=== PATIENT | male | born 1975 | race Caucasian/White ===

== ENCOUNTER 2017-10-16 09:20 | Emergency (ER) | payer BC, OTHER ==
[2017-03-07 12:57] VITALS: Ht 185.4 cm; Wt 81.6 kg
[~2017-10-16] VITALS: Ht 185.4 cm; Wt 81.6 kg
[~2017-10-16 09:20] MED LIST: CHOL400T29 PO; LEVO-85 PO; LEVO500T83 PO; MAGN400T52 PO; ONDA4TAB9 PO; PRE1 PO; PRE5 PO; SIRO1TAB PO; TACR1CAP15 PO; [UNRECOGNIZED DRUG - OTHER]
--- NOTE | 2017-10-16 09:39 | ER Report ---
History and Physical Time Seen By MD: 09:37 Hx. of Stated Complaint: PATIENT REPORTS FEVER, CHILLS AND NAUSEA FOR 2 DAYS HPI/ROS CHIEF COMPLAINT: Fever and nausea for 2 days HISTORY OF PRESENT ILLNESS: Patient is a 41-year-old male who was sent from [facility] for evaluation of fever and flulike symptoms patient has a history of renal transplant in 2004 no prior history of problems with rejection currently on immunosuppressive medication. For the past 2 days patient had generalized body aches headache fever between 101 an 102. He reports nausea without vomiting or abdominal pain or diarrhea. He does report cough. The patient did have influenza testing at the clinic which was reported to be negative. Temperature was recorded at 102.5 with a heart rate of 1:30 respiratory rate between 20 and 30 for breast per minute and a sat of 92% on room air. He was brought to [facility] by his mother. Patient reports normal urinary output denies any dysuria. REVIEW OF SYSTEMS: Constitutional: Fevers and chills Eyes: No discharge. ENT: Mild scratchy sore throat Cardiovascular: No chest pain, no palpitations. Respiratory: Nonproductive cough Gastrointestinal: No abdominal pain, nausea but no vomiting Genitourinary: No hematuria. Musculoskeletal: No back pain. Generalized body aches Skin: No rashes. Neurological: Generalized headache Allergies: Coded Allergies: Penicillins (Verified Allergy, Unknown, 04/23/15) codeine (Verified Allergy, Unknown, 04/23/15) morphine (Verified Allergy, Unknown, 04/23/15) Home Meds Active Scripts Oseltamivir Phosphate (TAMIFLU) 75 Mg Cap, 75 MG PO BID for 5 Days, #10 CAP 0 Refills Prov:PIA SOOD MD 10/16/17 Levofloxacin 500 Mg Tab (LEVAQUIN 500 MG TAB) 500 Mg Tablet, 500 MG PO QDAY, #8 TAB Prov:CARMEN FENTON MD 03/07/17 Ondansetron (ONDANSETRON ODT) 4 Mg Tab.rapdis, 4 MG PO Q8H for Nausea, #20 TAB Prov:DIANE GIFFORD PA-C 03/06/17 Levofloxacin 500 Mg Tab (LEVOFLOXACIN 500 MG TAB) 500 Mg Tablet, 500 MG PO QDAY for 7 Days, #7 TAB Prov:DIANE GIFFORD PA-C 03/06/17 Reported Medications Prednisone 5 Mg Tab (PREDNISONE 5 MG TAB) 5 Mg Tablet, 5 MG PO QDAY, TAB 03/07/17 Sirolimus (Sirolimus) 1 Mg Tablet, PO DAILY 03/06/17 Cholecalciferol (Vitamin D3) (VITAMIN D3) 400 Unit Tablet, 800 UNIT PO QAM 03/06/17 Magnesium Oxide (MAGOX 400) 400 Mg Tablet, 400 MG PO QAM 03/06/17 Tacrolimus (PROGRAF) 1 Mg Capsule, 2 MG PO BID, CAPSULE 11/12/13 Past Medical/Surgical History Past medical history significant for renal transplant currently on immunosuppressants (tacrolimus, prednisone, sirolimus). History of depression history of admission in February 2017 for pneumonia. Creatinine in February 2017 was 0.8 Hx Smoking: No Smoking Status: Never Smoker Hx Substance Use Disorder: No Hx Alcohol Use: No Constitutional Vital Sign - Last 24 Hours 10/16/17 10/16/17 10/16/17 10/16/17 09:27 09:29 09:50 10:00 Temp 101.0 Pulse 103 104 Resp 24 B/P (MAP) 146/97 146/97 (113) 134/92 (106) Pulse Ox 93 93 O2 Delivery Room Air 10/16/17 10/16/17 10/16/17 10/16/17 10:03 10:20 10:30 10:50 Pulse 101 93 B/P (MAP) 126/87 (100) Pulse Ox 96 96 O2 Flow Rate 3.0 10/16/17 10/16/17 10/16/17 10/16/17 10:53 10:55 11:00 11:10 Temp 98.2 Pulse 96 90 B/P (MAP) 125/86 (99) Pulse Ox 96 96 10/16/17 10/16/17 11:25 11:30 Pulse 96 B/P (MAP) 112/81 (91) Intake and Output 10/16/17 10/16/17 10/17/17 15:00 23:00 07:00 Intake Total 1000 ml Balance 1000 ml Physical Exam General/Constitutional: Patient is awake, alert, nontoxic and in no acute respiratory distress. Head: Normocephalic and atraumatic. Eyes: Conjunctival clear, Pupils are equal and reactive to light. Extraocular muscles are intact and symmetrical. Sclera are clear and anicteric. Ears:External canals are clear. Tympanic membranes are clear with normal landmarks and light reflex. Nares: No rhinorrhea or bleeding. Turbinates are pink and moist. Oropharyngeal: Mucous membranes are moist. There is no pharyngeal erythema or exudate. There are no palatal petechiae. Uvula is midline and symmetrical. Neck: Supple, no adenopathy. Cardiovascular: Heart is regular rate and rhythm without audible murmurs, rubs or gallops. Pulmonary: Lungs are clear to auscultation bilaterally. There are no wheezes, rales, or rhonchi. Chest rise is symmetrical Abdomen: Soft, nontender, no guarding or peritoneal signs. Extremities: No gross deformities, No peripheral cyanosis. Able to move all 4 extremities. Neuro: Alert and oriented X3, Cranial nerves 2 thru 12 are intact and symmetrical. Patient has normal gait. Skin: No rashes, skin is warm dry and well perfused. Medical Decision Making Data Points Result Diagram: 10/16/17 0940 10/16/17 0940 Laboratory Hematology Test 10/16/17 09:40 10/16/17 09:44 Red Blood Count 5.57 M/uL (4.00-5.60) Mean Corpuscular Volume 84.8 fL (80.0-96.0) Mean Corpuscular Hemoglobin 30.0 pg (26.0-33.0) Mean Corpuscular Hemoglobin Concent 35.4 g/dL (32.0-36.0) Red Cell Distribution Width 12.9 % (11.5-14.5) Mean Platelet Volume 8.2 fL (7.2-11.1) Neutrophils (%) (Auto) 79.2 % (39.4-72.5) Lymphocytes (%) (Auto) 7.3 % (17.6-49.6) Monocytes (%) (Auto) 13.0 % (4.1-12.4) Eosinophils (%) (Auto) 0.0 % (0.4-6.7) Basophils (%) (Auto) 0.5 % (0.3-1.4) Nucleated RBC Relative Count (auto) 0.5 /100WBC Neutrophils # (Auto) 9.0 K/uL (2.0-7.4) Lymphocytes # (Auto) 0.8 K/uL (1.3-3.6) Monocytes # (Auto) 1.5 K/uL (0.3-1.0) Eosinophils # (Auto) 0.0 K/uL (0.0-0.5) Basophils # (Auto) 0.1 K/uL (0.0-0.1) Nucleated RBC Absolute Count (auto) 0.06 K/uL Sodium Level 127 mmol/L (137-145) Potassium Level 4.1 mmol/L (3.5-5.0) Chloride Level 96 mmol/L (98-107) Carbon Dioxide Level 19 mmol/L (22-30) Blood Urea Nitrogen 16 mg/dl (9-21) Creatinine 0.90 mg/dl (0.66-1.25) Glomerular Filtration Rate Calc > 60.0 Random Glucose 139 mg/dl (75-110) Lactate 1.2 mmol/L (0.7-2.1) Calcium Level 9.8 mg/dl (8.4-10.2) Total Bilirubin 0.9 mg/dl (0.2-1.3) Aspartate Amino Transf (AST/SGOT) 47 U/L (0-35) Alanine Aminotransferase (ALT/SGPT) 97 U/L (0-56) Alkaline Phosphatase 286 U/L (0-126) Total Protein 6.7 gm/dl (6.3-8.2) Albumin 3.6 g/dl (3.5-5.0) Influenza Virus Type A (PCR) Negative (NEGATIVE) Influenza Virus Type B (PCR) Positive (NEGATIVE) Chemistry Test 10/16/17 09:40 10/16/17 09:44 White Blood Count 11.3 k/uL (4.5-11.0) Red Blood Count 5.57 M/uL (4.00-5.60) Hemoglobin 16.7 g/dL (14.0-18.0) Hematocrit 47.2 % (42.0-52.0) Mean Corpuscular Volume 84.8 fL (80.0-96.0) Mean Corpuscular Hemoglobin 30.0 pg (26.0-33.0) Mean Corpuscular Hemoglobin Concent 35.4 g/dL (32.0-36.0) Red Cell Distribution Width 12.9 % (11.5-14.5) Platelet Count 187 K/uL (150-450) Mean Platelet Volume 8.2 fL (7.2-11.1) Neutrophils (%) (Auto) 79.2 % (39.4-72.5) Lymphocytes (%) (Auto) 7.3 % (17.6-49.6) Monocytes (%) (Auto) 13.0 % (4.1-12.4) Eosinophils (%) (Auto) 0.0 % (0.4-6.7) Basophils (%) (Auto) 0.5 % (0.3-1.4) Nucleated RBC Relative Count (auto) 0.5 /100WBC Neutrophils # (Auto) 9.0 K/uL (2.0-7.4) Lymphocytes # (Auto) 0.8 K/uL (1.3-3.6) Monocytes # (Auto) 1.5 K/uL (0.3-1.0) Eosinophils # (Auto) 0.0 K/uL (0.0-0.5) Basophils # (Auto) 0.1 K/uL (0.0-0.1) Nucleated RBC Absolute Count (auto) 0.06 K/uL Glomerular Filtration Rate Calc > 60.0 Lactate 1.2 mmol/L (0.7-2.1) Calcium Level 9.8 mg/dl (8.4-10.2) Total Bilirubin 0.9 mg/dl (0.2-1.3) Aspartate Amino Transf (AST/SGOT) 47 U/L (0-35) Alanine Aminotransferase (ALT/SGPT) 97 U/L (0-56) Alkaline Phosphatase 286 U/L (0-126) Total Protein 6.7 gm/dl (6.3-8.2) Albumin 3.6 g/dl (3.5-5.0) Influenza Virus Type A (PCR) Negative (NEGATIVE) Influenza Virus Type B (PCR) Positive (NEGATIVE) Microbiology Microbiology Date/Time Source Procedure Growth Status 10/16/17 09:40 Blood Peripheral Draw Blood Culture - Preliminary NO GROWTH SO FAR, SET LATE. REINCUBATED Resulted ED Course/Re-evaluation Clinical Indication for ER IV: Hydration, IV Access ED Course Patient is a 41-year-old male who has an abdominal renal transplant that was done in 2004 and . Patient is followed by Dr. Jude Yuan in the nephrology clinic in [place], contact number is [phone]. Plan at this time will be medical evaluation. Based on the patient's symptoms I suspect the patient has influenza he's had body aches headache mild sore throat and cough. Influenza screening that was done prior to evaluation was reported to be negative however I will repeat this test as clinically and historically this does sound like influenza. Spoke with the on-call license clerk. She states that since we are in the window for Tamiflu his renal function is good and there are no interactions with his immunosuppressants she agrees that we will do a regular dose 5 day course of Tamiflu at this time. Decision to Disposition Date: Oct 16, 2017 Decision to Disposition Time: 11:40 Depart Departure Latest Vital Signs Vital Signs Date Time Temp Pulse Resp B/P (MAP) Pulse Ox O2 Delivery O2 Flow Rate FiO2 10/16/17 11:30 112/81 (91) 10/16/17 11:25 96 10/16/17 11:10 96 10/16/17 10:53 98.2 10/16/17 10:03 3.0 10/16/17 09:27 24 Room Air Impression: Primary Impression: Influenza Condition: Improved Disposition: HOME OR SELF-CARE Referrals: EDMAR AYOUB (PCP) New Scripts Oseltamivir Phosphate (TAMIFLU) 75 Mg Cap 75 MG PO BID for 5 Days, #10 CAP 0 Refills Prov: PIA SOOD MD 10/16/17 Patient Instructions: Influenza (DC) Additional Instructions: Continue to take all your current medications as prescribed and as directed. Return to the emergency department if your symptoms worsen including worsening shortness of breath or cough. Or no improvement within 48-72 hours. PIA SOOD MD Oct 16, 2017 09:39
[2017-10-16] MEDS ORDERED: KETOROLAC 15 MG/ML VIAL IVP ONE (09:45)
[2017-10-16] MEDS ORDERED: NS(*) 0.9% 1000 ML BAG 1,000 ML IV ONE (09:45)
[2017-10-16] MEDS ORDERED: ONDANSETRON 4 MG/2 ML VIAL IVP ONE (09:45)
[2017-10-16 10:02] LABS: PLATELET COUNT, AUTOMATED 187 K/uL (150-450)
--- NOTE | 2017-10-16 10:59 | RADIOLOGY IMAGING REPORT ---
[place] [facility] [place] NAME: Mane Figueroa : 1975 MR: [id number] V: [id number] EXAM DATE: ORDERING PHYSICIAN: PIA SOOD TECHNOLOGIST: Location: [facility] [place] Patient: Mane Figueroa : 1975 Visit/Account:[id number] Date of Sevice: 10/16/2017 EXAMINATION: Chest radiographs 2 views HISTORY: Cough, shortness of breath, chest pain and chills. COMPARISON: 03/06/2017. FINDINGS: PA and lateral views of the chest are submitted. Lines/tubes: None. Lungs/pleura: No focal consolidation or pleural effusion. Heart: Negative. Mediastinum: Negative. Bony structures/body wall: Negative. IMPRESSION: No radiographic evidence of acute cardiopulmonary disease. Report Dictated By: Alix Jameson MD at 10/16/2017 10:54 AM Report E-Signed By: Alix Jameson MD at 10/16/2017 10:55 AM WSN:[id number]
[2017-10-16] MEDS ORDERED: OSE75 PO (11:21)
[2017-10-16] MEDS ORDERED: OSELTAMIVIR PHOS 75 MG CAP PO ONE (11:25)
[2017-10-16 11:30] VITALS: BP 112/81
[2017-10-17] MEDS ORDERED: OXYC5TAB38 PO (06:03)
[2017-10-17] MEDS ORDERED: PROM-110 PO (06:03)
== END 2017-10-16 11:48 | disposition home or self-care (01) ==
LOC: ER 09:20
DX: J11.1 Influenza due to unidentified influenza virus with other respiratory manifestations (principal)
CPT/HCPCS: 36415; 71046; 83605; 85025; 87040; 87502; 96361; 96374; 96375; 99284; J1885; J2405; J7030; 82040; 82247; 82310; 82374; 82435; 82565; 82947; 84075; 84132; 84155; 84295; 84450; 84460; 84520

== ENCOUNTER 2017-10-17 03:54 | Emergency (ER) | payer BC ==
[2017-03-07 12:57] VITALS: Ht 185.4 cm; Wt 81.6 kg
[~2017-10-17] VITALS: Ht 185.4 cm; Wt 81.6 kg
[~2017-10-17 03:54] MED LIST changes: -OXYC5TAB38 PO; -PROM-110 PO
--- NOTE | 2017-10-17 04:02 | ER Report ---
History and Physical Time Seen By MD: 03:57 HPI/ROS CHIEF COMPLAINT: Headache, body aches, nausea HISTORY OF PRESENT ILLNESS: 41-year-old male brought in by ambulance from home with headache, body aches. Patient was diagnosed with influenza B yesterday. He was started on Tamiflu. His medical history is complicated that he is a renal transplant patient. He is on immunosuppressive drugs. He states she's been taking some ibuprofen. He states his renal doctor stay. He is not supposed to take Tylenol. I think he is mistaken. I think is not supposed to be taking ibuprofen or NSAIDs. Patient denies productive cough. He denies shortness of breath. He notes mostly intense body aches and pain. He notes no photophobia or stiff neck. REVIEW OF SYSTEMS: Respiratory: No cough, no dyspnea. Cardiovascular: No chest pain, no palpitations. Gastrointestinal: No vomiting, no abdominal pain. Musculoskeletal: As above Allergies: Coded Allergies: Penicillins (Verified Allergy, Unknown, 10/17/17) codeine (Verified Allergy, Unknown, 10/17/17) morphine (Verified Allergy, Unknown, 10/17/17) Home Meds Active Scripts Promethazine Hcl (PROMETHAZINE HCL) 25 Mg Tablet, 25 MG PO Q4H Y for cough and nausea suppression, #14 TAB Prov:MARILYMELECIO DO 10/17/17 Oxycodone Hcl (OXYCODONE HCL) 5 Mg Tablet, 5 MG PO Q4H Y for cough and pain suppression, #12 Prov:MELECIO CALIXTO Stu BECK 10/17/17 Oseltamivir Phosphate (TAMIFLU) 75 Mg Cap, 75 MG PO BID for 5 Days, #10 CAP 0 Refills Prov:PIA SOOD MD 10/16/17 Levofloxacin 500 Mg Tab (LEVAQUIN 500 MG TAB) 500 Mg Tablet, 500 MG PO QDAY, #8 TAB Prov:CARMEN FENTON MD 03/07/17 Ondansetron (ONDANSETRON ODT) 4 Mg Tab.rapdis, 4 MG PO Q8H for Nausea, #20 TAB Prov:DIANE GIFFORD PA-C 03/06/17 Levofloxacin 500 Mg Tab (LEVOFLOXACIN 500 MG TAB) 500 Mg Tablet, 500 MG PO QDAY for 7 Days, #7 TAB Prov:DIANE GIFFORD PA-C 03/06/17 Reported Medications Prednisone 5 Mg Tab (PREDNISONE 5 MG TAB) 5 Mg Tablet, 5 MG PO QDAY, TAB 03/07/17 Sirolimus (Sirolimus) 1 Mg Tablet, PO DAILY 03/06/17 Cholecalciferol (Vitamin D3) (VITAMIN D3) 400 Unit Tablet, 800 UNIT PO QAM 03/06/17 Magnesium Oxide (MAGOX 400) 400 Mg Tablet, 400 MG PO QAM 03/06/17 Tacrolimus (PROGRAF) 1 Mg Capsule, 2 MG PO BID, CAPSULE 11/12/13 Past Medical/Surgical History Past medical history significant for renal transplant currently on immunosuppressants (tacrolimus, prednisone, sirolimus). History of depression history of admission in February 2017 for pneumonia. Creatinine in February 2017 was 0.8 Reviewed Nurses Notes: Yes Old Medical Records Reviewed: Yes Hx Smoking: No Smoking Status: Never Smoker Hx Substance Use Disorder: No Hx Alcohol Use: No Constitutional Vital Sign - Last 24 Hours 10/17/17 10/17/17 10/17/17 10/17/17 03:57 04:00 04:09 04:24 Temp 100.6 Pulse 96 95 102 Resp 24 B/P (MAP) 151/98 151/97 (115) Pulse Ox 96 96 86 O2 Delivery Room Air 10/17/17 10/17/17 10/17/17 10/17/17 04:30 04:30 04:39 05:09 Pulse 100 102 B/P (MAP) 156/95 (115) Pulse Ox 96 95 O2 Flow Rate 2.0 10/17/17 10/17/17 10/17/17 10/17/17 05:16 05:30 05:39 05:44 Pulse 111 106 B/P (MAP) 127/85 (99) 120/80 (93) Pulse Ox 96 91 10/17/17 10/17/17 10/17/17 10/17/17 05:45 05:59 06:00 06:14 Pulse 97 90 B/P (MAP) 126/80 (95) Pulse Ox 94 O2 Flow Rate 1.0 10/17/17 10/17/17 10/17/17 10/17/17 06:19 06:30 06:35 06:42 Pulse 88 86 B/P (MAP) 103/70 (81) 126/84 (98) Pulse Ox 94 94 Physical Exam General Appearance: The patient is alert, has no immediate need for airway protection and no current signs of toxicity. Moderate distress, slightly pale appearing, vital signs stable, low-grade fever 100.7 HEENT: Pupils equal and round no injection. -Photophobia, TMs normal, oropharynx mild erythema, no exudate or petechiae Respiratory: Chest is non tender, lungs are clear to auscultation. No wheezing or rails Cardiac: regular rate and rhythm Gastrointestinal: Abdomen is soft and non tender, no masses, bowel sounds normal. Musculoskeletal: Neck: Neck is supple and non tender. No meningismus Extremities have full range of motion and are non tender. Skin: No rashes or lesions. DIFFERENTIAL DIAGNOSIS: After history and physical exam differential diagnosis was considered for adult fever including but not limited to viral syndromes including influenza, urinary tract infection, pneumonia and sepsis. Medical Decision Making Data Points Result Diagram: 10/17/17 0359 10/17/17 0359 Laboratory Hematology Test 10/17/17 03:59 Red Blood Count 5.47 M/uL (4.00-5.60) Mean Corpuscular Volume 85.0 fL (80.0-96.0) Mean Corpuscular Hemoglobin 29.9 pg (26.0-33.0) Mean Corpuscular Hemoglobin Concent 35.2 g/dL (32.0-36.0) Red Cell Distribution Width 13.2 % (11.5-14.5) Mean Platelet Volume 8.3 fL (7.2-11.1) Neutrophils (%) (Auto) 77.9 % (39.4-72.5) Lymphocytes (%) (Auto) 9.0 % (17.6-49.6) Monocytes (%) (Auto) 12.6 % (4.1-12.4) Eosinophils (%) (Auto) 0.0 % (0.4-6.7) Basophils (%) (Auto) 0.5 % (0.3-1.4) Nucleated RBC Relative Count (auto) 0.0 /100WBC Neutrophils # (Auto) 9.1 K/uL (2.0-7.4) Lymphocytes # (Auto) 1.0 K/uL (1.3-3.6) Monocytes # (Auto) 1.5 K/uL (0.3-1.0) Eosinophils # (Auto) 0.0 K/uL (0.0-0.5) Basophils # (Auto) 0.1 K/uL (0.0-0.1) Nucleated RBC Absolute Count (auto) 0.00 K/uL Sodium Level 124 mmol/L (137-145) Potassium Level 4.7 mmol/L (3.5-5.0) Chloride Level 96 mmol/L (98-107) Carbon Dioxide Level 20 mmol/L (22-30) Blood Urea Nitrogen 16 mg/dl (9-21) Creatinine 1.00 mg/dl (0.66-1.25) Glomerular Filtration Rate Calc > 60.0 Random Glucose 110 mg/dl (75-110) Lactate 1.5 mmol/L (0.7-2.1) Calcium Level 9.0 mg/dl (8.4-10.2) Total Bilirubin 0.8 mg/dl (0.2-1.3) Aspartate Amino Transf (AST/SGOT) 36 U/L (0-35) Alanine Aminotransferase (ALT/SGPT) 75 U/L (0-56) Alkaline Phosphatase 237 U/L (0-126) C-Reactive Protein 3.3 mg/dl (<1.0) Total Protein 6.0 gm/dl (6.3-8.2) Albumin 3.1 g/dl (3.5-5.0) Chemistry Test 10/17/17 03:59 White Blood Count 11.7 k/uL (4.5-11.0) Red Blood Count 5.47 M/uL (4.00-5.60) Hemoglobin 16.4 g/dL (14.0-18.0) Hematocrit 46.5 % (42.0-52.0) Mean Corpuscular Volume 85.0 fL (80.0-96.0) Mean Corpuscular Hemoglobin 29.9 pg (26.0-33.0) Mean Corpuscular Hemoglobin Concent 35.2 g/dL (32.0-36.0) Red Cell Distribution Width 13.2 % (11.5-14.5) Platelet Count 141 K/uL (150-450) Mean Platelet Volume 8.3 fL (7.2-11.1) Neutrophils (%) (Auto) 77.9 % (39.4-72.5) Lymphocytes (%) (Auto) 9.0 % (17.6-49.6) Monocytes (%) (Auto) 12.6 % (4.1-12.4) Eosinophils (%) (Auto) 0.0 % (0.4-6.7) Basophils (%) (Auto) 0.5 % (0.3-1.4) Nucleated RBC Relative Count (auto) 0.0 /100WBC Neutrophils # (Auto) 9.1 K/uL (2.0-7.4) Lymphocytes # (Auto) 1.0 K/uL (1.3-3.6) Monocytes # (Auto) 1.5 K/uL (0.3-1.0) Eosinophils # (Auto) 0.0 K/uL (0.0-0.5) Basophils # (Auto) 0.1 K/uL (0.0-0.1) Nucleated RBC Absolute Count (auto) 0.00 K/uL Glomerular Filtration Rate Calc > 60.0 Lactate 1.5 mmol/L (0.7-2.1) Calcium Level 9.0 mg/dl (8.4-10.2) Total Bilirubin 0.8 mg/dl (0.2-1.3) Aspartate Amino Transf (AST/SGOT) 36 U/L (0-35) Alanine Aminotransferase (ALT/SGPT) 75 U/L (0-56) Alkaline Phosphatase 237 U/L (0-126) C-Reactive Protein 3.3 mg/dl (<1.0) Total Protein 6.0 gm/dl (6.3-8.2) Albumin 3.1 g/dl (3.5-5.0) EKG/Imaging Imaging X-ray: Single view portable chest x-ray was obtained. I viewed the images myself on the PACS system. My interpretation of the images is: No infiltrate, no effusion, normal mediastinum. The radiologist interpretation had no clinically significant variation from this interpretation. ED Course/Re-evaluation Clinical Indication for ER IV: Hydration, IV Access ED Course Patient was admitted to an examination room. H&P was done. The differential diagnoses was considered. On clinical examination. Patient has stable vital signs. He appears miserable and tired. He is complaining of significant pain and throughout his joints. He has diagnosed with influenza. He is on Tamiflu. He denies productive cough or shortness of breath. Chest x-ray shows no obvious infiltrate. His diagnostic studies show slight worsening of his hyponatremia from 127 to 124. He was treated with 2 L of NS here in the emergency department, which likely corrected that. Patient was given Phenergan and fentanyl 50 g 2. He reports feeling better. I offered him the option of admission for treatment of his hyponatremia and management of his influenza symptoms. He would prefer to go home. He'll be given oxycodone for pain and cough suppression and Phenergan tablets to dry up his cough help control any nausea and help him sleep. He is advised to follow-up with his primary care if unimproved in 2-3 days. Patient also was advised to contact his transplant team and confirm whether he is to avoid Tylenol or NSAIDs. He thinks he spoke to be avoiding Tylenol. I think he should be avoiding NSAIDs. This point was brought to his attention. Decision to Disposition Date: Oct 17, 2017 Decision to Disposition Time: 05:58 Depart Departure Latest Vital Signs Vital Signs Date Time Temp Pulse Resp B/P (MAP) Pulse Ox O2 Delivery O2 Flow Rate FiO2 10/17/17 06:42 126/84 (98) 10/17/17 06:35 86 94 10/17/17 05:45 1.0 10/17/17 03:57 100.6 24 Room Air Impression: Primary Impression: Influenza Additional Impressions: Headache History of renal transplant Condition: Improved Disposition: HOME OR SELF-CARE Referrals: EDMAR AYOUB (PCP) New Scripts Promethazine Hcl (PROMETHAZINE HCL) 25 Mg Tablet 25 MG PO Q4H Y for cough and nausea suppression, #14 TAB Prov: MELECIO CALIXTO DO 10/17/17 Oxycodone Hcl (OXYCODONE HCL) 5 Mg Tablet 5 MG PO Q4H Y for cough and pain suppression, #12 Prov: MELECIO CALIXTO DO 10/17/17 Patient Instructions: Influenza (ED) Additional Instructions: Follow-up with your transplant team and confirm if it is okay 3 to take ibuprofen. I suspect it's not. Follow-up with your primary care if unimproved in 2-3 days. Problem Qualifiers Additional Impressions: Headache Headache type: unspecified Headache chronicity pattern: acute headache Intractability: not intractable Qualified Codes: R51 - Headache MELECIO CALIXTO DO Oct 17, 2017 04:02
[2017-10-17] MEDS ORDERED: NS(*) 0.9% 1000 ML BAG 1,000 ML IV ONE (04:07)
[2017-10-17] MEDS ORDERED: PROMETHAZINE 25 MG/ML 1 ML AMP IVP ONE (04:10)
[2017-10-17] MEDS ORDERED: fentaNYL CITR 100 MCG/2 ML AMP IVP ONE ×2 (04:10→05:55)
[2017-10-17 04:23] LABS: PLATELET COUNT, AUTOMATED 141 K/uL (150-450)
[2017-10-17] MEDS ORDERED: EMS NS 0.9%(*) 1000 ML BAG 1,000 ML IV ONE (04:25)
--- NOTE | 2017-10-17 04:52 | RADIOLOGY IMAGING REPORT ---
FACILITY: [facility] [place] PATIENT NAME: Mane Figueroa : 1975 MR: [id number] V: [id number] EXAM DATE: ORDERING PHYSICIAN: MELECIO CALIXTO TECHNOLOGIST: Location[place] [facility] [place] Patient: Mane Figueroa : 1975 Visit/Account:[id number] Date of Sevice: 10/17/2017 PORTABLE CHEST: Indication: Dyspnea and flulike symptoms. Technique: A single frontal film was obtained. Comparison: 10/16/2017 Skeletal and soft tissue structures: Intact and unchanged. Heart and mediastinum: Stable. Lung marrero: Well-expanded and clear. No focal opacities. Pleural spaces: Unremarkable. Impression: No acute interval change. Report Dictated By: Elio Badillo MD at 10/17/2017 4:38 AM Report E-Signed By: Elio Badillo MD at 10/17/2017 4:46 AM WSN:[id number]
[2017-10-17] MEDS ORDERED: OXYC5TAB38 PO (06:03)
[2017-10-17] MEDS ORDERED: PROM-110 PO (06:03)
[2017-10-17 06:42] VITALS: BP 126/84
== END 2017-10-17 06:46 | disposition home or self-care (01) ==
LOC: ER 03:55
DX: J11.1 Influenza due to unidentified influenza virus with other respiratory manifestations (principal); R51 Headache; Z94.0 Kidney transplant status
CPT/HCPCS: 71045; 83605; 85025; 86140; 96361; 96374; 96375; 96376; 99284; J2550; J3010; J7030; 82040; 82247; 82310; 82374; 82435; 82565; 82947; 84075; 84132; 84155; 84295; 84450; 84460; 84520

== ENCOUNTER → 2017-10-17 | Outpatient (CLI) | payer BC ==
[2017-03-07 12:57] VITALS: BMI 24.3
[~2017-10-17] MED LIST changes: +OSE75 PO; +OXYC5TAB38 PO; +PROM-110 PO
== END ==
LOC: AMB 03:35
PROVIDERS: ATTEND Nurse Practitioner
DX: J11.1 Influenza due to unidentified influenza virus with other respiratory manifestations (principal)
CPT/HCPCS: A0425; A0427

== ENCOUNTER 2018-04-17 13:55 | Inpatient (IN) | payer BC ==
[2017-03-07 12:57] VITALS: Ht 185.4 cm; Wt 79.4 kg
[~2018-04-17] VITALS: Ht 185.4 cm; Wt 79.4 kg
[~2018-04-17 13:55] MED LIST changes: +OXYC5TAB38 PO; +PROM-110 PO
[2018-04-17] MEDS ORDERED: NS(*) 0.9% 1000 ML BAG 1,000 ML IV ONE ×2 (14:09→14:55)
[2018-04-17] MEDS ORDERED: ACETAMINOPHEN(*)1000 MG/100 ML 100 ML IVPB ONE (14:10)
--- NOTE | 2018-04-17 14:13 | ER Report ---
History and Physical Time Seen By MD: 14:02 HPI/ROS CHIEF COMPLAINT: Abdominal pain, urinary retention, fever HISTORY OF PRESENT ILLNESS: 42-year-old male patient presents to emergency room with complaint of abdominal pain, urinary retention and fever. Patient states that the urinary retention started about 10:30 today. He states that his abdominal pain started right before that. Patient states that the fever started about the same time. Patient states that yesterday he been doing fine, had no problems. He states he denies any changes in his medication. Patient denies any diarrhea. Patient has been nauseous and did vomit. Patient did go to [facility] urgent care for evaluation, they did a evaluation and felt that he would be better suited being evaluated here and referred him here. Patient states his pain is an 8 out of 10 over the low abdomen. States more the right lower quadrant. Patient states nothing seems to make the pain better. REVIEW OF SYSTEMS: Respiratory: No cough, no dyspnea. Cardiovascular: No chest pain, no palpitations. Gastrointestinal: As noted above Musculoskeletal: No back pain. Allergies: Coded Allergies: Penicillins (Verified Allergy, Unknown, 04/17/18) codeine (Verified Allergy, Unknown, 04/17/18) morphine (Verified Allergy, Unknown, 04/17/18) Home Meds Reported Medications Prednisone 5 Mg Tab (PREDNISONE 5 MG TAB) 5 Mg Tablet, 5 MG PO QDAY, TAB 03/07/17 Sirolimus (Sirolimus) 1 Mg Tablet, PO DAILY 03/06/17 Cholecalciferol (Vitamin D3) (VITAMIN D3) 400 Unit Tablet, 800 UNIT PO PRN 03/06/17 Magnesium Oxide (MAGOX 400) 400 Mg Tablet, 400 MG PO QAM 03/06/17 Tacrolimus (PROGRAF) 1 Mg Capsule, 2 MG PO BID, CAPSULE 11/12/13 Discontinued Scripts Promethazine Hcl (PROMETHAZINE HCL) 25 Mg Tablet, 25 MG PO Q4H Y for cough and nausea suppression, #14 TAB Prov:MELECIO CALIXTO DO 10/17/17 Oxycodone Hcl (OXYCODONE HCL) 5 Mg Tablet, 5 MG PO Q4H Y for cough and pain suppression, #12 Prov:MELECIO CALIXTO DO 10/17/17 Oseltamivir Phosphate (TAMIFLU) 75 Mg Cap, 75 MG PO BID for 5 Days, #10 CAP 0 Refills Prov:PIA SOOD MD 10/16/17 Levofloxacin 500 Mg Tab (LEVAQUIN 500 MG TAB) 500 Mg Tablet, 500 MG PO QDAY, #8 TAB Prov:CARMEN FENTON MD 03/07/17 Ondansetron (ONDANSETRON ODT) 4 Mg Tab.rapdis, 4 MG PO Q8H for Nausea, #20 TAB Prov:DIANE GIFFORD PA-C 03/06/17 Levofloxacin 500 Mg Tab (LEVOFLOXACIN 500 MG TAB) 500 Mg Tablet, 500 MG PO QDAY for 7 Days, #7 TAB Prov:DIANE GIFFORD PA-C 03/06/17 Past Medical/Surgical History Patient has a past medical history of a defect, kidney transplant, depression, anxiety. Patient has surgical history of tonsillectomy, kidney transplant 2004. Reviewed Nurses Notes: Yes Hx Smoking: No Smoking Status: Never Smoker Hx Substance Use Disorder: No Hx Alcohol Use: No Constitutional Vital Sign - Last 24 Hours 04/17/18 04/17/18 04/17/18 04/17/18 14:02 14:03 14:10 14:25 Temp 101.2 Pulse 112 111 107 Resp 32 61 64 B/P (MAP) 132/85 (101) 132/85 Pulse Ox 97 96 97 O2 Delivery Room Air Room Air Room Air 04/17/18 04/17/18 04/17/18 04/17/18 14:40 14:44 14:45 14:55 Pulse 106 112 Resp 62 24 B/P (MAP) 134/79 (97) 129/80 (96) Pulse Ox 97 93 O2 Delivery Room Air Nasal Cannula O2 Flow Rate 2 04/17/18 04/17/18 04/17/18 04/17/18 15:00 15:00 15:05 15:28 Pulse 110 Resp 32 B/P (MAP) 118/71 (87) 96/63 (74) Pulse Ox 95 O2 Delivery Nasal Cannula O2 Flow Rate 2.0 2 04/17/18 04/17/18 04/17/18 04/17/18 15:30 15:35 15:45 15:50 Pulse 105 107 Resp 23 24 B/P (MAP) 104/66 (79) 112/64 (80) Pulse Ox 95 96 O2 Delivery Nasal Cannula Nasal Cannula O2 Flow Rate 2 2 7/04/17/18 04/17/18 04/17/18 15:55 16:00 16:10 16:15 Pulse 105 105 Resp 15 17 B/P (MAP) 105/67 (80) 104/62 (76) Pulse Ox 96 97 O2 Delivery Nasal Cannula Nasal Cannula O2 Flow Rate 2 2 04/17/18 04/17/18 04/17/18 04/17/18 16:25 16:30 16:35 16:40 Pulse 102 116 Resp 20 26 B/P (MAP) 103/66 (78) 112/67 (82) Pulse Ox 96 95 O2 Delivery Nasal Cannula Nasal Cannula O2 Flow Rate 2 2 Intake and Output 04/17/18 04/17/18 04/18/18 15:00 23:00 07:00 Intake Total 1100 ml Output Total 300 ml 900 ml Balance 800 ml -900 ml Physical Exam General Appearance: The patient is alert, has no immediate need for airway protection and no current signs of toxicity. Patient does appear uncomfortable, he is also very warm to touch. Respiratory: Chest is non tender, lungs are clear to auscultation. Cardiac: regular rate and rhythm Gastrointestinal: Abdomen is soft and tender in the right lower quadrant, no masses, bowel sounds normal. Musculoskeletal: Neck: Neck is supple and non tender. Extremities have full range of motion and are non tender. Skin: No rashes or lesions. DIFFERENTIAL DIAGNOSIS: After history and physical exam differential diagnosis was considered for abdominal pain including but not limited to appendicitis, cholecystitis, gastritis and urinary tract infection. Medical Decision Making Data Points Result Diagram: 04/17/18 1410 04/17/18 1410 Laboratory Hematology Test 04/17/18 14:10 Red Blood Count 5.19 M/uL (4.00-5.60) Mean Corpuscular Volume 84.4 fL (80.0-96.0) Mean Corpuscular Hemoglobin 30.0 pg (26.0-33.0) Mean Corpuscular Hemoglobin Concent 35.6 g/dL (32.0-36.0) Red Cell Distribution Width 13.2 % (11.5-14.5) Mean Platelet Volume 8.2 fL (7.2-11.1) Neutrophils (%) (Auto) 89.8 % (39.4-72.5) Lymphocytes (%) (Auto) 3.7 % (17.6-49.6) Monocytes (%) (Auto) 5.8 % (4.1-12.4) Eosinophils (%) (Auto) 0.1 % (0.4-6.7) Basophils (%) (Auto) 0.6 % (0.3-1.4) Nucleated RBC Relative Count (auto) 0.0 /100WBC Neutrophils # (Auto) 15.9 K/uL (2.0-7.4) Lymphocytes # (Auto) 0.6 K/uL (1.3-3.6) Monocytes # (Auto) 1.0 K/uL (0.3-1.0) Eosinophils # (Auto) 0.0 K/uL (0.0-0.5) Basophils # (Auto) 0.1 K/uL (0.0-0.1) Nucleated RBC Absolute Count (auto) 0.00 K/uL Erythrocyte Sedimentation Rate 14 mm/HOUR (0-15) Urine Color Yellow Urine Clarity Slightly-cloudy Urine pH 5.0 pH (4.8-9.5) Urine Specific [place] 1.011 Urine Protein Negative mg/dL (NEGATIVE) Urine Glucose (UA) Negative mg/dL (NEGATIVE) Urine Ketones Trace mg/dL (NEGATIVE) Urine Blood Moderate (NEGATIVE) Urine Nitrite Negative (NEGATIVE) Urine Bilirubin Negative (NEGATIVE) Urine Urobilinogen Negative mg/dL (0.2-1.9) Urine Leukocyte Esterase Moderate (NEGATIVE) Urine RBC 14 /HPF (0-2/HPF) Urine WBC 29 /HPF (0-5/HPF) Urine WBC Clumps Few /HPF Urine Squamous Epithelial Cells Many /LPF (NONE-FEW) Urine Amorphous Crystals Few /HPF Urine Bacteria Few /HPF (NONE-FEW) Urine Mucus None /HPF (NONE-FEW) Sodium Level 126 mmol/L (137-145) Potassium Level 3.7 mmol/L (3.5-5.0) Chloride Level 96 mmol/L (98-107) Carbon Dioxide Level 20 mmol/L (22-30) Blood Urea Nitrogen 18 mg/dl (9-21) Creatinine 0.90 mg/dl (0.66-1.25) Glomerular Filtration Rate Calc > 60.0 Random Glucose 139 mg/dl (75-110) Lactate 1.9 mmol/L (0.7-2.1) Calcium Level 9.7 mg/dl (8.4-10.2) Total Bilirubin 1.2 mg/dl (0.2-1.3) Aspartate Amino Transf (AST/SGOT) 66 U/L (0-35) Alanine Aminotransferase (ALT/SGPT) 120 U/L (0-56) Alkaline Phosphatase 248 U/L (0-126) C-Reactive Protein 1.3 mg/dl (<1.0) Total Protein 7.0 g/dl (6.3-8.2) Albumin 3.8 g/dl (3.5-5.0) Chemistry Test 04/17/18 14:10 White Blood Count 17.6 k/uL (4.5-11.0) Red Blood Count 5.19 M/uL (4.00-5.60) Hemoglobin 15.6 g/dL (14.0-18.0) Hematocrit 43.8 % (42.0-52.0) Mean Corpuscular Volume 84.4 fL (80.0-96.0) Mean Corpuscular Hemoglobin 30.0 pg (26.0-33.0) Mean Corpuscular Hemoglobin Concent 35.6 g/dL (32.0-36.0) Red Cell Distribution Width 13.2 % (11.5-14.5) Platelet Count 182 K/uL (150-450) Mean Platelet Volume 8.2 fL (7.2-11.1) Neutrophils (%) (Auto) 89.8 % (39.4-72.5) Lymphocytes (%) (Auto) 3.7 % (17.6-49.6) Monocytes (%) (Auto) 5.8 % (4.1-12.4) Eosinophils (%) (Auto) 0.1 % (0.4-6.7) Basophils (%) (Auto) 0.6 % (0.3-1.4) Nucleated RBC Relative Count (auto) 0.0 /100WBC Neutrophils # (Auto) 15.9 K/uL (2.0-7.4) Lymphocytes # (Auto) 0.6 K/uL (1.3-3.6) Monocytes # (Auto) 1.0 K/uL (0.3-1.0) Eosinophils # (Auto) 0.0 K/uL (0.0-0.5) Basophils # (Auto) 0.1 K/uL (0.0-0.1) Nucleated RBC Absolute Count (auto) 0.00 K/uL Erythrocyte Sedimentation Rate 14 mm/HOUR (0-15) Urine Color Yellow Urine Clarity Slightly-cloudy Urine pH 5.0 pH (4.8-9.5) Urine Specific [place] 1.011 Urine Protein Negative mg/dL (NEGATIVE) Urine Glucose (UA) Negative mg/dL (NEGATIVE) Urine Ketones Trace mg/dL (NEGATIVE) Urine Blood Moderate (NEGATIVE) Urine Nitrite Negative (NEGATIVE) Urine Bilirubin Negative (NEGATIVE) Urine Urobilinogen Negative mg/dL (0.2-1.9) Urine Leukocyte Esterase Moderate (NEGATIVE) Urine RBC 14 /HPF (0-2/HPF) Urine WBC 29 /HPF (0-5/HPF) Urine WBC Clumps Few /HPF Urine Squamous Epithelial Cells Many /LPF (NONE-FEW) Urine Amorphous Crystals Few /HPF Urine Bacteria Few /HPF (NONE-FEW) Urine Mucus None /HPF (NONE-FEW) Glomerular Filtration Rate Calc > 60.0 Lactate 1.9 mmol/L (0.7-2.1) Calcium Level 9.7 mg/dl (8.4-10.2) Total Bilirubin 1.2 mg/dl (0.2-1.3) Aspartate Amino Transf (AST/SGOT) 66 U/L (0-35) Alanine Aminotransferase (ALT/SGPT) 120 U/L (0-56) Alkaline Phosphatase 248 U/L (0-126) C-Reactive Protein 1.3 mg/dl (<1.0) Total Protein 7.0 g/dl (6.3-8.2) Albumin 3.8 g/dl (3.5-5.0) Urinalysis Test 04/17/18 14:10 Urine Color Yellow Urine Clarity Slightly-cloudy Urine pH 5.0 pH (4.8-9.5) Urine Specific [place] 1.011 Urine Protein Negative mg/dL (NEGATIVE) Urine Glucose (UA) Negative mg/dL (NEGATIVE) Urine Ketones Trace mg/dL (NEGATIVE) Urine Blood Moderate (NEGATIVE) Urine Nitrite Negative (NEGATIVE) Urine Bilirubin Negative (NEGATIVE) Urine Urobilinogen Negative mg/dL (0.2-1.9) Urine Leukocyte Esterase Moderate (NEGATIVE) Urine RBC 14 /HPF (0-2/HPF) Urine WBC 29 /HPF (0-5/HPF) Urine WBC Clumps Few /HPF Urine Squamous Epithelial Cells Many /LPF (NONE-FEW) Urine Amorphous Crystals Few /HPF Urine Bacteria Few /HPF (NONE-FEW) Urine Mucus None /HPF (NONE-FEW) EKG/Imaging Imaging CT abdomen and pelvis with IV contrast Indication: Abdominal pain. Comparison: None available. . Technique: Axial CT images were obtained through the abdomen and pelvis during injection of nonionic iodinated intravenous contrast. Reformatted coronal and sagittal images were also obtained. One of the following dose optimization techniques was utilized in the performance of this exam: Automated exposure control; adjustment of the mA and/ or kV according to the patient's size; or use of an iterative reconstruction technique. Specific details can be referenced in the facility's radiology CT exam operational policy. Contrast: 75 ml of Isovue-370 IV contrast. Findings: Lower lung marrero: Limited views lower lung field are unremarkable. Liver: No focal parenchymal abnormality of the liver. Biliary: Gallbladder appears unremarkable as well as the intra and extra hepatic biliary system. Pancreas: No focal abnormality. Spleen: Normal appearance. Adrenal glands: Unremarkable. Kidneys / retroperitoneum: Both [place] kidneys are atrophic. There is a transplant kidney seen in the right lower quadrant. This kidney shows normal enhancement without stone or hydronephrosis. No discrete lesion. There is minimal perinephric stranding. Ureter is unremarkable. Bowel / peritoneum / mesenteries: Colon shows no focal abnormality. The appendix is not definitely visualized. The small bowel shows no focal abnormality or obstruction. Stomach is unremarkable. No free air, free fluid, fluid collections or areas of inflammation. Lymph node assessment: No pathologic adenopathy identified. Pelvic structures: The urinary bladder shows a Browning catheter in place with small amount of air. This is partially decompressed. There does appear to be a small left-sided diverticulum of the urinary bladder measuring 2 cm. No other focal abnormality of the urinary bladder. The remaining pelvic structures visualized within normal limits. Vessels: No significant atherosclerotic calcifications seen throughout a nonaneurysmal abdominal aorta and branches. Incidental note of a left-sided IVC. Musculoskeletal / Body wall: No acute or aggressive osseous abnormality. Mild degenerative changes spine. Multilevel Schmorl's nodes. IMPRESSION: 1. Transplanted right kidney shows normal enhancement without a focal abnormality. There is mild perinephric stranding. Unsure if this is chronic or acute to suggest any kind of early infection. Suggest correlation with urinalysis. The exam is otherwise fairly unremarkable without acute abnormality. Other chronic findings as above. Report Dictated By: Patric Underwood at 04/17/2018 3:34 PM Report E-Signed By: Patric Underwood at 04/17/2018 3:41 PM 2 VIEWS CHEST INDICATION: Fever. COMPARISON: 10/17/2017. FINDINGS: Cardiomediastinal silhouette and pulmonary vessels within normal limits. There is no focal infiltrate or lobar consolidation. There is no pneumothorax or pleural effusion. No nodule. Upper abdomen is unremarkable. No acute bony abnormality. IMPRESSION: 1. No acute cardiopulmonary process. Report Dictated By: Patric Underwood at 04/17/2018 3:42 PM Report E-Signed By: Patric Underwood at 04/17/2018 3:43 PM ED Course/Re-evaluation ED Course Patient was admitted to an exam room, history and physical were obtained. Differential diagnoses were considered. On examination patient does have elevated temperature, and also has tenderness to the abdomen. Bladder does feel distended. An IV started, CBC, CMP, urinalysis were obtained. Patient had an elevated white count of 17,000 with left shift, renal function was quite good with a creatinine of 0.9 and a BUN of 20. Lactate was negative at 1.9. A chest x -ray was done which showed no acute cardiopulmonary processes. A CT scan of the abdomen and pelvis was done which showed perinephric inflammation. I believe patient does have a urinary tract infection which is resulted in pyelonephritis as he does have a moderate leukocyte esterase with 29 white blood cells per high -power field. Patient is currently on Prograf and prednisone for his kidney transplant. I discussed the case with the hospitalist, Dr. Emerson, he felt this was something that could be managed here, however he did want me to talk with nephrology to make sure that they did not want the patient to be transferred. I discussed the case with Dr. Caban, nephrology at [facility]. She felt that the patient did not need to be transferred and felt that he could be treated here in our facility. I discussed this with Dr. Emerson, who came down and evaluated the patient and did agree to accept the patient for admission. Decision to Disposition Date: Apr 17, 2018 Decision to Disposition Time: 16:29 Depart Departure Latest Vital Signs Vital Signs Date Time Temp Pulse Resp B/P (MAP) Pulse Ox O2 Delivery O2 Flow Rate FiO2 04/17/18 16:40 112/67 (82) 04/17/18 16:35 116 26 95 Nasal Cannula 2 04/17/18 14:03 101.2 Impression: Primary Impression: Pyelonephritis Condition: Condition Unchanged Disposition: Admitted from ER Referrals: EDMAR AYOUB (PCP) MICHELE TATE Apr 17, 2018 14:13
[2018-04-17 14:34] LABS: PLATELET COUNT, AUTOMATED 182 K/uL (150-450)
[2018-04-17] MEDS ORDERED: fentaNYL CITR 100 MCG/2 ML AMP IVP ONE (14:45)
[2018-04-17] MEDS ORDERED: IOPAMIDOL 76% 100 ML INFUS BTL 100 ML ONE (15:18)
--- NOTE | 2018-04-17 15:46 | RADIOLOGY IMAGING REPORT ---
[place]AC[place] [facility] [place] NAME: Mane Figueroa : 1975 MR: [id number] V: [id number] EXAM DATE: ORDERING PHYSICIAN: MICHELE TATE TECHNOLOGIST: Location: [facility] [place] Patient: Mane Figueroa : 1975 Visit/Account:[id number] Date of Sevice: 04/17/2018 CT abdomen and pelvis with IV contrast Indication: Abdominal pain. Comparison: None available. . Technique: Axial CT images were obtained through the abdomen and pelvis during injection of nonioni c iodinated intravenous contrast. Reformatted coronal and sagittal images were also obtained. One of the following dose optimization techniques was utilized in the performance of this exam: Autom ated exposure control; adjustment of the mA and/or kV according to the patient's size; or use of an i terative reconstruction technique. Specific details can be referenced in the facility's radiology C T exam operational policy. Contrast: 75 ml of Isovue-370 IV contrast. Findings: Lower lung marrero: Limited views lower lung field are unremarkable. Liver: No focal parenchymal abnormality of the liver. Biliary: Gallbladder appears unremarkable as well as the intra and extra hepatic biliary system. Pancreas: No focal abnormality. Spleen: Normal appearance. Adrenal glands: Unremarkable. Kidneys / retroperitoneum: Both [place] kidneys are atrophic. There is a transplant kidney seen in the right lower quadrant. This kidney shows normal enhancement without stone or hydronephrosis. No discr ete lesion. There is minimal perinephric stranding. Ureter is unremarkable. Bowel / peritoneum / mesenteries: Colon shows no focal abnormality. The appendix is not definitely vi sualized. The small bowel shows no focal abnormality or obstruction. Stomach is unremarkable. No free air, free fluid, fluid collections or areas of inflammation. Lymph node assessment: No pathologic adenopathy identified. Pelvic structures: The urinary bladder shows a Browning catheter in place with small amount of air. T his is partially decompressed. There does appear to be a small left-sided diverticulum of the urinary bladder measuring 2 cm. No other focal abnormality of the urinary bladder. The remaining pelvic stru ctures visualized within normal limits. Vessels: No significant atherosclerotic calcifications seen throughout a nonaneurysmal abdominal aort a and branches. Incidental note of a left-sided IVC. Musculoskeletal / Body wall: No acute or aggressive osseous abnormality. Mild degenerative changes sp ine. Multilevel Schmorl's nodes. IMPRESSION: 1. Transplanted right kidney shows normal enhancement without a focal abnormality. There is mild cyndee nephric stranding. Unsure if this is chronic or acute to suggest any kind of early infection. Suggest correlation with urinalysis. The exam is otherwise fairly unremarkable without acute abnormality. O ther chronic findings as above. Report Dictated By: Patric Underwood at 04/17/2018 3:34 PM Report E-Signed By: Patric Underwood at 04/17/2018 3:41 PM WSN:[id number]
--- NOTE | 2018-04-17 15:47 | RADIOLOGY IMAGING REPORT ---
FACILITY: [facility] - [place] PATIENT NAME: Mane Figueroa : 1975 MR: [id number] V: [id number] EXAM DATE: ORDERING PHYSICIAN: MICHELE TATE TECHNOLOGIST: Location: [facility] Patient: Mane Figueroa : 1975 Visit/Account:[id number] Date of Sevice: 04/17/2018 2 VIEWS CHEST INDICATION: Fever. COMPARISON: 10/17/2017. FINDINGS: Cardiomediastinal silhouette and pulmonary vessels within normal limits. There is no focal infiltrate or lobar consolidation. There is no pneumothorax or pleural effusion. No nodule. Upper abdomen is unremarkable. No acute bony abnormality. IMPRESSION: 1. No acute cardiopulmonary process. Report Dictated By: Patric Underwood at 04/17/2018 3:42 PM Report E-Signed By: Patric Underwood at 04/17/2018 3:43 PM WSN:[id number]
[2018-04-17] MEDS ORDERED: LEVOFLOXACIN/D5W*500 MG/100 ML 100 ML IVPB ONE (16:10)
[2018-04-17] MEDS ORDERED: INFLUENZA VIRUS VAC 0.5 ML SYR IM ONLY ONE (16:45)
[2018-04-17] MEDS ORDERED: LEVOFLOXACIN/D5W 250 MG/50 ML 50 ML IVPB ONE (16:45)
[2018-04-17] MEDS ORDERED: HYDROCORTISONE 100 MG/2 ML IVP ONE (16:45)
[2018-04-17 17:11] VITALS: BP 100/55
--- NOTE | 2018-04-17 17:11 | History & Physical ---
History of Present Illness History of Present Illness 42yo male with a h/o kidney transplant who came to the ER for difficulty with urination, chills, and low abdominal pain. He was in his normal state of health until this morning at about 1000. He noted inability to void urine, low abdominal pain and then developed a fever. He denies cp/sob/diarrhea/n/v. He was at work and after about 30-60 minutes of symptoms came to the ER. The ER provider spoke with a Rn Ccu at [facility], who felt that the patient had pyelonephritis, but could be watched at [facility]. The patient's heart rate was 112bpm and BP was 132/85 upon admission to the ER. He has been given 1200cc of IVF, Fentanyl, Tylenol, Levofloxacin and Hydrocortisone. A catheter was placed and he had about 400cc of PVR. His HR has decreased to 102 bpm, but his BP has also decreased to 103/66. He is reporting feeling better and notes that the catheter helped a lot. History Problems: (1) History of tonsillectomy (2) History of kidney transplant Status: Chronic Home Meds Reported Medications Prednisone 5 Mg Tab (PREDNISONE 5 MG TAB) 5 Mg Tablet, 5 MG PO QDAY, TAB 03/07/17 Sirolimus (Sirolimus) 1 Mg Tablet, PO DAILY 03/06/17 Cholecalciferol (Vitamin D3) (VITAMIN D3) 400 Unit Tablet, 800 UNIT PO QAM 03/06/17 Magnesium Oxide (MAGOX 400) 400 Mg Tablet, 400 MG PO QAM 03/06/17 Tacrolimus (PROGRAF) 1 Mg Capsule, 2 MG PO BID, CAPSULE 11/12/13 Discontinued Scripts Promethazine Hcl (PROMETHAZINE HCL) 25 Mg Tablet, 25 MG PO Q4H Y for cough and nausea suppression, #14 TAB Prov:MELECIO CALIXTO DO 10/17/17 Oxycodone Hcl (OXYCODONE HCL) 5 Mg Tablet, 5 MG PO Q4H Y for cough and pain suppression, #12 Prov:MELECIO CALIXTO DO 10/17/17 Oseltamivir Phosphate (TAMIFLU) 75 Mg Cap, 75 MG PO BID for 5 Days, #10 CAP 0 Refills Prov:PIA SOOD MD 10/16/17 Levofloxacin 500 Mg Tab (LEVAQUIN 500 MG TAB) 500 Mg Tablet, 500 MG PO QDAY, #8 TAB Prov:CARMEN FENTON MD 03/07/17 Ondansetron (ONDANSETRON ODT) 4 Mg Tab.rapdis, 4 MG PO Q8H for Nausea, #20 TAB Prov:DIANE GIFFORD PA-C 03/06/17 Levofloxacin 500 Mg Tab (LEVOFLOXACIN 500 MG TAB) 500 Mg Tablet, 500 MG PO QDAY for 7 Days, #7 TAB Prov:DIANE GIFFORD PA-C 03/06/17 Allergies: Coded Allergies: Penicillins (Verified Allergy, Unknown, 04/17/18) codeine (Verified Allergy, Unknown, 04/17/18) morphine (Verified Allergy, Unknown, 04/17/18) Other Social/Family Hx No tobacco or alcohol use. Hx Smoking: No Smoking Status: Never Smoker Hx Alcohol Use: No Hx Substance Use Disorder: No Review of Systems All Systems Reviewed/Normal: Yes, Except as Noted Exam Vital Signs Vital Signs Date Time Temp Pulse Resp B/P (MAP) Pulse Ox O2 Delivery O2 Flow Rate FiO2 04/17/18 16:30 103/66 (78) 04/17/18 16:25 102 20 96 Nasal Cannula 2 04/17/18 14:03 101.2 General Appearance: Alert, Awake, No Acute Distress Neuro: No Gross deficits Eyes: PERRLA ENT: Moist Mucous Membranes Cardiovascular: Regular Rate and Rhythm Respiratory: Clear to Auscultation GI: Abd Soft and Non-Tender Extremities: No Edema Integumentary: No Jaundice, No Cyanosis Medical Decision Making Data Points Result Diagram: 04/17/18 1410 04/17/18 1410 Item Value Date Time Neutrophils (%) (Auto) 89.8 % H 04/17/18 1410 Lymphocytes (%) (Auto) 3.7 % L 04/17/18 1410 Monocytes (%) (Auto) 5.8 % 04/17/18 1410 Eosinophils (%) (Auto) 0.1 % L 04/17/18 1410 Basophils (%) (Auto) 0.6 % 04/17/18 1410 Erythrocyte Sedimentation Rate 14 mm/HOUR 04/17/18 1410 C-Reactive Protein 1.3 mg/dl H 04/17/18 1410 Aspartate Amino Transf (AST/SGOT) 66 U/L H 04/17/18 1410 Alanine Aminotransferase (ALT/SGPT) 120 U/L H 04/17/18 1410 Alkaline Phosphatase 248 U/L H 04/17/18 1410 Total Bilirubin 1.2 mg/dl 04/17/18 1410 Lactate 1.9 mmol/L 04/17/18 1410 Random Glucose 139 mg/dl H 04/17/18 1410 Urine RBC 14 /HPF 04/17/18 1410 Urine WBC 29 /HPF 04/17/18 1410 Urine Squamous Epithelial Cells Many /LPF H 04/17/18 1410 Urine Leukocyte Esterase Moderate H 04/17/18 1410 Urine WBC Clumps Few /HPF 04/17/18 1410 Urine Amorphous Crystals Few /HPF 04/17/18 1410 Urine Bacteria Few /HPF 04/17/18 1410 Urine Mucus None /HPF 04/17/18 1410 Sodium Level 124 mmol/L *L 10/17/17 0359 Blood Urea Nitrogen 16 mg/dl 10/17/17 0359 Creatinine 1.00 mg/dl 10/17/17 0359 C-Reactive Protein 3.3 mg/dl H 10/17/17 0359 EKG / Imaging Imaging Abd/Pelvis CT - 1. Transplanted right kidney shows normal enhancement without a focal abnormality. There is mild perinephric stranding. Unsure if this is chronic or acute to suggest any kind of early infection. Suggest correlation with urinalysis. The exam is otherwise fairly unremarkable without acute abnormality. Other chronic findings as above. CXR - 1. No acute cardiopulmonary process. Assessment and Plan Problems: (1) Pyelonephritis Status: Acute Assessment & Plan: He presented with abdominal pain, chills, and inability to urinate at about 10am the day of admission. UA has pyuria, CT shows mild perinephric stranding of the transplanted kidney and his lactate was normal. The patient has temperature of 101.2 degrees, is tachycardic and has a low normal BP. This infection is complicated by his immunosuppressive medications. Nephrology felt that he could be treated at [facility] and suggested Fluoroquinolones. Will give 750mg of Levofloxacin daily. He has been given 1.2 liters of crystalloid and he will be continued to be aggressively hydrated. Will give start stress dose hydrocortisone because of the chronic prednisone use. Urine and blood cultures were done in the ER. (2) History of kidney transplant Status: Chronic Assessment & Plan: Creatinine is wnl. Will hold tacrolimus tonight, but start it and sirolimus tomorrow. He will be on stress dose hydrocortisone as mentioned above. (3) Urine retention Status: Acute Assessment & Plan: Secondary to infection. He had a PVR of 400cc in the ER. Continue Browning catheter and can do a voiding trial when improving. (4) Hyponatremia Status: Chronic Assessment & Plan: This appears longstanding and stable. Will follow. (5) Elevated LFTs Status: Chronic Assessment & Plan: This appears longstanding and stable. Will follow. Copies to: EDMAR AYOUBP; SAMANTHA KENDRICK MD Venous Thromboembolism Antithrombotics Is Pt On Any Antithrombotics?: No Exam Sepsis Risk: Possible Sepsis Risk KAREN QUEVEDO MD Apr 17, 2018 17:11
[2018-04-17] MEDS: NS(*) 0.9% 1000 ML BAG 1,000 ML IV PRN (17:49)
[2018-04-17 18:05] VITALS: BP 102/64
[2018-04-17] MEDS ORDERED: TACROLIMUS 0.5 MG CAPSULE PO ONE (19:45)
--- NOTE | 2018-04-17 19:48 | Miscellaneous Provider Note ---
Miscellaneous Provider Note Note Afebrile since getting to floor. HR 80 BP 116/71 He is feeling better and would like Prograf tonight. Because his BP/P/T are improving, will restart the Prograf tonight. KAREN QUEVEDO MD Apr 17, 2018 19:48
[2018-04-17 19:52] VITALS: BP 116/71
[2018-04-17] MEDS ORDERED: TACROLIMUS 0.5 MG CAPSULE PO SCH (21:00)
[2018-04-17 22:17] VITALS: BP 140/89
[2018-04-17] MEDS: HYDROCORTISONE 100 MG/2 ML IVP SCH (22:19)
[2018-04-17] MEDS: ACETAMINOPHEN 500 MG TAB PO PRN (22:20)
[2018-04-18 03:22] VITALS: BP 150/78
[2018-04-18] MEDS: NS(*) 0.9% 1000 ML BAG 1,000 ML IV PRN ×2 (03:32→08:29)
[2018-04-18] MEDS ORDERED: PROMETHAZINE 25 MG/ML 1 ML AMP IVP PRN (04:20)
[2018-04-18 06:10] LABS: PLATELET COUNT, AUTOMATED 146 K/uL (150-450)
[2018-04-18] MEDS: ACETAMINOPHEN 500 MG TAB PO PRN (06:22)
[2018-04-18] MEDS: HYDROCORTISONE 100 MG/2 ML IVP SCH ×3 (06:23→23:58)
[2018-04-18 08:25] VITALS: BP 126/75
[2018-04-18] MEDS: ENOXAPARIN 40 MG/0.4ML SYR SC SCH (09:19)
[2018-04-18] MEDS: MAGNESIUM OXIDE 400 MG TAB PO SCH (09:20)
[2018-04-18] MEDS: SIROLIMUS 1 MG TAB PO SCH (09:21)
[2018-04-18] MEDS: TACROLIMUS 0.5 MG CAPSULE PO SCH ×2 (09:24→21:13)
--- NOTE | 2018-04-18 10:14 | Hospitalist Progress Note ---
Subjective Progress Notes Subjective 42M PMHx renal transplant 2004 presented with pyelonephritis. THis am uncomfortable reports Browning bothering him, discussed retention likely 2/2 infection and should resolve with Abx. Plan to remove Browning this afternoon. Patient Complains of: Neurological: No: Syncope, Confusion Cardiovascular: No: Chest Pain, Palpitations Respiratory: No: Cough, Congestion Gastrointestinal: Nausea, No Vomiting Genitourinary: Dysuria Musculoskeletal: No: Pain, Sprain Physical Exam Vital Signs Date Time Temp Pulse Resp B/P (MAP) Pulse Ox O2 Delivery O2 Flow Rate FiO2 04/18/18 08:30 90 04/18/18 08:25 98.6 102 20 126/75 (92) Room Air 04/17/18 19:52 2.0 Intake and Output 04/19/18 07:00 Intake Total 0 ml Balance 0 ml Intake Oral 0 ml General Appearance: Alert, Awake Neuro: No Gross deficits Eyes: PERRLA ENT: Normal Neck: No Masses Cardiovascular: Normal Rhythm & Peripheral Pulses Respiratory: No Respiratory Distress Chest: No Masses GI: Soft and Non-Tender (Kidney palable RLQ/pelvis) : Normal (+ Browning) Lymph: No Adenopathy Musculoskeletal: No Weakness/Pain Extremities: Soft and Non Tender, Warm, Pulses Integumentary: Skin Intact without Lesion / Mass Psych: Alert & Oriented X3, Appropriate Mood & Affect Result Diagram: 04/18/1849 04/18/18 0549 Assessment and Plan Problems: (1) Pyelonephritis Status: Acute Assessment & Plan: He presented with abdominal pain, chills, and inability to urinate at about 10am the day of admission. UA has pyuria, CT shows mild perinephric stranding of the transplanted kidney and his lactate was normal. The patient had temperature of 101.2 degrees, tachycardic and a low normal BP. This infection is complicated by his immunosuppressive medications. Nephrology felt that he could be treated at [facility] and suggested Fluoroquinolones. Currently 750mg of Levofloxacin daily. Volume resuscitated with IV fluid and now taking PO, monitor and consider further IV if necessary. Will give start stress dose hydrocortisone because of the chronic prednisone use. Urine and blood cultures were done in the ER. (2) History of kidney transplant Status: Chronic Assessment & Plan: Creatinine is wnl. Continue tacrolimus and sirolimus, holding prednisone. He will be on stress dose hydrocortisone as mentioned above. (3) Urine retention Status: Acute Assessment & Plan: Secondary to infection. He had a PVR of 400cc in the ER. Will d/c Browning this afternoon. (4) Hyponatremia Status: Chronic Assessment & Plan: This appears longstanding and stable. Will follow. (5) Elevated LFTs Status: Chronic Assessment & Plan: This appears longstanding and stable. Will follow. Exam Sepsis Risk: Sepsis Risk HAYDEN LEE DO Apr 18, 2018 10:14
[2018-04-18 10:49] VITALS: BP 107/73
[2018-04-18 15:20] VITALS: BP 152/107
[2018-04-18] MEDS: ACETAMINOPHEN(*)1000 MG/100 ML 100 ML IVPB PRN ×2 (15:39→21:14)
[2018-04-18] MEDS ORDERED: LEVOFLOXACIN/D5W 750 MG/150 ML 150 ML IVPB SCH (16:00)
[2018-04-18 16:12] VITALS: BP 127/75
[2018-04-18] MEDS ORDERED: VANCOMYCIN(*) 1 GM VIAL 2 GM in NS(*) 0.9% 250 ML BAG 250 ML IVPB ONE (16:30)
[2018-04-18 18:44] VITALS: BP 110/74
[2018-04-18] MEDS: VANCOMYCIN(*) 1 GM VIAL 1 GM, VANCOMYCIN (*) 0.5 GM VIAL 0.5 GM in NS(*) 0.9% 250 ML BA... IVPB SCH (23:57)
[2018-04-19] VITALS: BP 129/80
[2018-04-19 05:12] VITALS: BP 129/79
[2018-04-19] MEDS: ACETAMINOPHEN(*)1000 MG/100 ML 100 ML IVPB PRN ×2 (05:13→21:03)
[2018-04-19] MEDS: NS(*) 0.9% 1000 ML BAG 1,000 ML IV PRN ×2 (05:13→18:36)
[2018-04-19 07:26] VITALS: BP 136/94
[2018-04-19] MEDS: HYDROCORTISONE 100 MG/2 ML IVP SCH (07:33)
[2018-04-19 07:53] LABS: PLATELET COUNT, AUTOMATED 157 K/uL (150-450)
[2018-04-19] MEDS: VANCOMYCIN(*) 1 GM VIAL 1 GM, VANCOMYCIN (*) 0.5 GM VIAL 0.5 GM in NS(*) 0.9% 250 ML BA... IVPB SCH (09:16)
[2018-04-19] MEDS: MAGNESIUM OXIDE 400 MG TAB PO SCH (09:18)
[2018-04-19] MEDS: TACROLIMUS 0.5 MG CAPSULE PO SCH ×2 (09:18→21:03)
[2018-04-19] MEDS: SIROLIMUS 1 MG TAB PO SCH (09:18)
[2018-04-19] MEDS: ENOXAPARIN 40 MG/0.4ML SYR SC SCH (09:19)
[2018-04-19] MEDS: predniSONE 5 MG TAB PO SCH (09:19)
[2018-04-19] MEDS ORDERED: SIROLIMUS 1 MG TAB PO ONE (09:35)
[2018-04-19 10:53] VITALS: BP 134/89
--- NOTE | 2018-04-19 10:57 | Hospitalist Progress Note ---
Subjective Progress Notes Subjective He reports feeling much improved. Temp is down. Physical Exam Vital Signs Date Time Temp Pulse Resp B/P (MAP) Pulse Ox O2 Delivery O2 Flow Rate FiO2 04/19/18 07:30 92 Room Air 04/19/18 07:26 98.0 88 18 136/94 (108) 04/18/18 16:12 2.0 Intake and Output 04/20/18 07:00 Intake Total 160 ml Output Total 1175 ml Balance -1015 ml Intake Oral 160 ml Output Urine Total 1175 ml # Bowel Movements 1 General Appearance: Alert, Awake Cardiovascular: Regular Rate and Rhythm Respiratory: Clear to Auscultation GI: Soft and Non-Tender Extremities: Warm, Perfused Result Diagram: 04/19/1874304/19/18743 Assessment and Plan Problems: (1) Pyelonephritis Status: Acute Assessment & Plan: He presented with abdominal pain, chills, and inability to urinate at about 10AM the day of admission. UA has pyuria, CT shows mild perinephric stranding of the transplanted kidney. His lactate was normal. The patient had temperature of 101.2 degrees, tachycardic and a low normal BP. This infection is complicated by his immunosuppressive medications. Nephrology felt that he could be treated at [facility] and suggested Fluoroquinolones. Initially placed on 750mg of Levofloxacin daily. Urine culture is growing staphylococcal species yet to be identified. He was switched to IV vancomycin. Will also transition from stress dose hydrocortisone to his usual prednisone dose. (2) History of kidney transplant Status: Chronic Assessment & Plan: Creatinine is in normal range. Continue tacrolimus and sirolimus. Will transition back to prednisone. (3) Urine retention Status: Acute Assessment & Plan: Secondary to infection. He had a PVR of 400cc in the ER. Will d/c Browning today and monitor. (4) Hyponatremia Status: Chronic Assessment & Plan: Improved to 135 today. This appears longstanding. Will follow. (5) Elevated LFTs Status: Chronic Assessment & Plan: This appears longstanding and stable. Will follow. Exam Sepsis Risk: No Definite Risk VANNESSA FENTON MD Apr 19, 2018 10:57
[2018-04-19] MEDS ORDERED: LEVOFLOXACIN/D5W 750 MG/150 ML 150 ML IVPB SCH (16:00)
[2018-04-19 19:22] VITALS: BP 159/94
--- NOTE | 2018-04-19 21:17 | Miscellaneous Provider Note ---
Miscellaneous Provider Note Note Mane developed some chest tightness this evening. No pain, nausea, or significant dyspnea. Vitals unremarkable, EKG normal, exam unremarkable. I suspect he may have started to develop some fluid overload. Will stop his IV fluids and extra IV medications. Watch closely. VANNESSA FENTON MD Apr 19, 2018 21:17
--- NOTE | 2018-04-19 21:20 | EKG ---
FACILITY: [facility] [place] PATIENT NAME: MICHAEL MCKEON : [id number] MR: [id number] V: [id number] EXAM DATE: ORDERING PHYSICIAN: VANNESSA FENTON TECHNOLOGIST: SHARAD Ibanez Reason : Blood Pressure : / mmHG Vent. Rate : 083 BPM Atrial Rate : 083 BPM P-R Int : 136 ms QRS Dur : 082 ms QT Int : 336 ms P-R-T Axes : 042 057 048 degrees QTc Int : 394 ms Sinus rhythm No acute appearing findings No previous ECGs available Confirmed by VANNESSA FENTON ([id number]) on 04/20/2018 6:10:03 AM Referred By: Confirmed By:VANNESSA FENTON
[2018-04-20 03:21] VITALS: BP 151/94
[2018-04-20] MEDS ORDERED: ACETAMINOPHEN 325 MG TAB PO PRN (04:00)
[2018-04-20 06:15] LABS: PLATELET COUNT, AUTOMATED 151 K/uL (150-450)
[2018-04-20] MEDS: ENOXAPARIN 40 MG/0.4ML SYR SC SCH ×2 (08:27→08:33)
[2018-04-20] MEDS: MAGNESIUM OXIDE 400 MG TAB PO SCH (08:28)
[2018-04-20] MEDS: predniSONE 5 MG TAB PO SCH (08:28)
[2018-04-20] MEDS: TACROLIMUS 0.5 MG CAPSULE PO SCH (08:29)
[2018-04-20 08:40] VITALS: BP 136/87
[2018-04-20] MEDS ORDERED: SIROLIMUS 1 MG TAB PO SCH (09:00)
[2018-04-20 11:07] VITALS: BP 135/90
[2018-04-20] MEDS ORDERED: LEVOFLOXACIN 750 MG TAB PO SCH (12:00)
[2018-04-20] MEDS ORDERED: LEVO750T27 PO (12:27)
--- NOTE | 2018-04-20 12:42 | Hospitalist Depart ---
Discharge Summary Reason for Hosp/Final Diag: (1) Pyelonephritis Status: Acute Hospital Course & Plan: He presented with abdominal pain, chills, and inability to urinate at about 10AM the day of admission. UA has pyuria, CT shows mild perinephric stranding of the transplanted kidney. His lactate was normal. The patient had temperature of 101.2 degrees, tachycardic and a low normal BP. This infection is complicated by his immunosuppressive medications. Nephrology felt that he could be treated at [facility] and suggested Fluoroquinolones. Initially placed on 750mg of Levofloxacin daily. Spiked fever after less than 24 hours and based on initial Cx was changed to vancomycin. Later identified as resistant strain Staph Epi and sensitive to Levaquin, changed Abx back and he remained afebrile until discharge. Complete additional 10 days therapy on Levaquin PO. (2) History of kidney transplant Status: Chronic Hospital Course & Plan: Creatinine is in normal range. Continue tacrolimus and sirolimus and prednisone. (3) Urine retention Status: Acute Hospital Course & Plan: Secondary to infection. He had a PVR of 400cc in the ER. Browning removed with no further retention. (4) Hyponatremia Status: Chronic Hospital Course & Plan: Longstanding. Stable, asymptomatic. (5) Elevated LFTs Status: Chronic Hospital Course & Plan: Longstanding and stable. Departure Weight (Pounds): 175 Result Diagram: 04/20/1855104/20/18551 Condition: Improved Discharge Instructions Home Meds Reported Medications Prednisone 5 Mg Tab (PREDNISONE 5 MG TAB) 5 Mg Tablet, 5 MG PO QDAY, TAB 03/07/17 Sirolimus (Sirolimus) 1 Mg Tablet, PO DAILY 03/06/17 Cholecalciferol (Vitamin D3) (VITAMIN D3) 400 Unit Tablet, 800 UNIT PO PRN 03/06/17 Magnesium Oxide (MAGOX 400) 400 Mg Tablet, 400 MG PO QAM 03/06/17 Tacrolimus (PROGRAF) 1 Mg Capsule, 2 MG PO BID, CAPSULE 11/12/13 Discontinued Scripts Promethazine Hcl (PROMETHAZINE HCL) 25 Mg Tablet, 25 MG PO Q4H Y for cough and nausea suppression, #14 TAB Prov:MELECIO CALIXTO DO 10/17/17 Oxycodone Hcl (OXYCODONE HCL) 5 Mg Tablet, 5 MG PO Q4H Y for cough and pain suppression, #12 Prov:MELECIO CALIXTO DO 10/17/17 Oseltamivir Phosphate (TAMIFLU) 75 Mg Cap, 75 MG PO BID for 5 Days, #10 CAP 0 Refills Prov:PIA SOOD MD 10/16/17 Levofloxacin 500 Mg Tab (LEVAQUIN 500 MG TAB) 500 Mg Tablet, 500 MG PO QDAY, #8 TAB Prov:CARMEN FENTON MD 03/07/17 Ondansetron (ONDANSETRON ODT) 4 Mg Tab.rapdis, 4 MG PO Q8H for Nausea, #20 TAB Prov:DIANE GIFFORD PA-C 03/06/17 Levofloxacin 500 Mg Tab (LEVOFLOXACIN 500 MG TAB) 500 Mg Tablet, 500 MG PO QDAY for 7 Days, #7 TAB Prov:DIANE GIFFORD PA-C 03/06/17 Diet: Regular Activity: As Tolerated Special Instructions: Medication reconcilliation incorrect, should include 10d levofloxacin 750mg tab once daily. Venous Thromboembolism Antithrombotics Is Pt On Any Antithrombotics?: No HAYDEN LEE DO Apr 20, 2018 12:42
== END 2018-04-20 15:10 | disposition home or self-care (01) | DRG 690 ==
LOC: ER 14:22 → MED 16:48
PROVIDERS: ADMIT Internal Medicine; ATTEND Internal Medicine
DX: N10 Acute pyelonephritis (principal); Z94.0 Kidney transplant status; E87.1 Hypo-osmolality and hyponatremia; R33.9 Retention of urine, unspecified; B95.7 Other staphylococcus as the cause of diseases classified elsewhere
CPT/HCPCS: 36415; 71046; 74177; 80202; 81001; 82040; 82247; 82310; 82374; 82435; 82565; 82947; 83605; 84075; 84132; 84155; 84295; 84450; 84460; 84520; 85025; 85651; 86140; 87040; 87077; 87088; 87186; 93005; C1758; J0131; J1650; J1720; J1956; J2550; J3010; J3370; J7030; J7050; J7512; Q9967

== ENCOUNTER 2019-04-24 08:49 | Emergency (ER) | payer BC ==
[2017-03-07 12:57] VITALS: Wt 79.4 kg
[~2019-04-24 08:49] MED LIST changes: -GLIP-152 PO; -TRAM-420 PO
[2019-04-24 08:50] VITALS: BP 153/102
[2019-04-24] MEDS ORDERED: GLIP-152 PO (08:53)
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
[2019-04-24] MEDS ORDERED: DIPHTH/TETANUS/ACEL. PERTUSSIS IM ONLY ONE (09:55)
[2019-04-24] MEDS ORDERED: TRAM-420 PO (10:13)
== END 2019-04-24 10:15 | disposition home or self-care (01) ==
LOC: ER 09:29
DX: T20.12XA Burn of first degree of lip(s), initial encounter (principal); T22.211A Burn of second degree of right forearm, initial encounter
CPT/HCPCS: 90715; 96372; 99283

== ENCOUNTER → 2019-04-24 | Outpatient (CLI) | payer BC ==
[2017-03-07 12:57] VITALS: BMI 24.3
[~2019-04-24] MED LIST changes: +GLIP-152 PO; +LEVO750T27 PO; +TRAM-420 PO
== END ==
LOC: AMB 08:34
PROVIDERS: ATTEND Nurse Practitioner
DX: T20.40XA Corrosion of unspecified degree of head, face, and neck, unspecified site, initial encounter (principal); T23.401A Corrosion of unspecified degree of right hand, unspecified site, initial encounter; T22.40XA Corrosion of unspecified degree of shoulder and upper limb, except wrist and hand, unspecified site, initial encounter; T23.411A Corrosion of unspecified degree of right thumb (nail), initial encounter
CPT/HCPCS: A0425; A0429